=== PATIENT | female | born 1985 | race African-American/Black ===

== ENCOUNTER 2023-01-17 22:14 | Emergency (ER) | payer SELFPAY ==
[~2023-01-17] VITALS: Ht 165.1 cm; Wt 82.0 kg
[2023-01-17 22:30] VITALS: O2SAT 99
[2023-01-17 22:52] VITALS: TEMP 98.3
[2023-01-17 22:54] LABS: BASOPHILS % 0.3 % (0.0-2.0); EOSINOPHILS % 1.7 % (0.0-5.0); HEMATOCRIT. 38.7 % (36.0-48.0); HEMOGLOBIN. 12.8 g/dL (12.0-16.0); LYMPHOCYTES % 40.4 % (20.0-50.0); MEAN CORPUSCULAR VOLUME 87.8 fL (81.0-99.0); MEAN PLATELET VOLUME 7.5 fl (7.4-10.4); MONOCYTES % 7.9 % (2.0-8.0); NEUTROPHILS % 49.7 % (40.0-76.0); PLATELET 290 x1000/uL (130-400); RED BLOOD CELL COUNT 4.41 mill/uL (4.2-5.4); RED CELL DISTRIBUTION WIDTH 14.5 % (11.6-14.6); WHITE BLOOD COUNT 11.9 x1000/uL (4.5-11.0)
[2023-01-17 23:00] LABS: CHLORIDE 108 mEq/L (98-107); INDEX HEMOLYSI 1 (1-3); INDEX ICTERIC 1 (1-4); INDEX LIPEMIC 1 (1-3); SODIUM 139 mEq/L (136-145)
[2023-01-17 23:10] LABS: ALANINE AMINOTRANSFERASE 29 IU/L (13-61); ALBUMIN 3.5 g/dL (3.4-5.0); ASPARTATE AMINOTRANSFERASE 34 IU/L (15-37); BILIRUBIN TOTAL 0.5 mg/dL (0.1-1.0); CALCIUM 8.7 mg/dL (8.5-10.1); CARBON DIOXIDE 27 mEq/L (21-32); CREATININE 0.7 mg/dL (0.6-1.3); ETHANOL BLOOD < 10 mg/dL (<10); GLUCOSE 99 mg/dL (70-105); NT PRO B-TYPE NATRIURETIC PEP 42 pg/mL (5-125); PROTEIN TOTAL 7.7 g/dL (6.0-8.3); TROPONIN I HIGH SENSITIVITY 4 ng/L (<54); UREA NITROGEN BLOOD 10 mg/dL (7-21)
[2023-01-18] MEDS ORDERED: POTASSIUM CHLORIDE 20MEQ TABLET SR PO NR (00:15)
[2023-01-18 01:19] LABS: TROPONIN I HIGH SENSITIVITY 5 ng/L (<54)
[2023-01-18 04:30] VITALS: BP 99/56; PULSE 75; RESP 21
== END 2023-01-18 04:34 | disposition home or self-care (01) ==
LOC: ER 22:14
DX: R07.89 Other chest pain (principal); G89.29 Other chronic pain
CPT/HCPCS: 36415; 71045; 80053; 80320; 83880; 84484; 85025; 93005; 99285; G0480